=== PATIENT | male | born 1995 | race African-American/Black ===

== ENCOUNTER 2024-06-08 16:05 | Emergency (ER) | payer MEDICAID, SELFPAY ==
--- NOTE | ~2024-06-08 | XR_ITS ---
EXAMINATION: RADIOGRAPH LEFT ANKLE AND LEFT FOOT CLINICAL INDICATION: Status post injury while playing soccer. COMPARISON: No similar priors. TECHNIQUE: 2 views of the left ankle and 3 views of the left foot. FINDINGS: On the frontal view of the left ankle, there is suggestion of asymmetric widening of the medial clear space. No evidence of osseous fractures. Circumferential soft tissue swelling around the ankle. No significant abnormality in the left foot. XR/XR ankle LT min 3V IMPRESSION: 1. Asymmetric widening of the medial clear space of the left ankle, ligamentous injury cannot be excluded. 2. No acute fractures. Electronically signed by: Anayeli Bass MD 06/08/2024 05:27 PM EDT
--- NOTE | ~2024-06-08 | XR_ITS ---
EXAMINATION: RADIOGRAPH LEFT ANKLE AND LEFT FOOT CLINICAL INDICATION: Status post injury while playing soccer. COMPARISON: No similar priors. TECHNIQUE: 2 views of the left ankle and 3 views of the left foot. FINDINGS: On the frontal view of the left ankle, there is suggestion of asymmetric widening of the medial clear space. No evidence of osseous fractures. Circumferential soft tissue swelling around the ankle. No significant abnormality in the left foot. XR/XR foot LT min 3V IMPRESSION: 1. Asymmetric widening of the medial clear space of the left ankle, ligamentous injury cannot be excluded. 2. No acute fractures. Electronically signed by: Anayeli Bass MD 06/08/2024 05:27 PM EDT
[2024-06-08 16:11] VITALS: BP 137/82; PULSE 100; RESP 19; TEMP 36.6; O2SAT 100; BMI 26.4
--- NOTE | 2024-06-08 16:12 | ED.LOWEXIN ---
HPI - Extremity Injury (Lower) General Chief Complaint: Extremity Injury, Lower Stated Complaint: left ankle inj Time Seen by Provider: 06/08/24 17:16 Source: patient and RN notes reviewed Mode of arrival: ambulatory Limitations: no limitations History of Present Illness ED Provider: Georgina Newman PA-C HPI Narrative: This is a 28-year-old male, with no known medical problems, who presents emergency department with complaints of left ankle pain and swelling since yesterday. Patient states that while he was playing soccer yesterday he was kicked in the left foot and ankle by the soccer ball as well as a another player. He states that he had pain at that time however has been able to weightbear. He states that this morning he noticed increased pain and swelling and has been unable to put any weight on his left foot and ankle. He took Tylenol yesterday which provided him with some relief. Denies history of trauma to the ankle in the past. No history of IV drug use. No fevers or chills. No other complaints or concerns at this time. MD complaint: ankle injury and foot injury Onset (ago): day(s) Type of Injury: blunt Place: street/outdoors Severity: moderate Relieving factors: NSAID, cold therapy, immobilization and rest Exacerbating factors: weight bearing, movement and palpation Context: direct blow Associated symptoms: swelling and unable to bear weight Other symptoms: none Related Data Previous Rx's ?Medication ?Instructions ?Recorded acetaminophen 500 mg tablet 500 mg PO Q6H PRN pain #30 tabs 06/08/24 (Tylenol Extra Strength) ibuprofen 600 mg tablet 600 mg PO Q6H PRN pain #30 tabs 06/08/24 Allergies Allergy/AdvReac Type Severity Reaction Status Date / Time No Known Allergies Allergy Verified 06/08/24 16:12 Review of Systems Review of Systems: Yes all other systems are reviewed and are negative Constitutional: Constitutional: Reports as per HPI Physical Exam Vital Signs: Vital Signs: Last Vital Signs Temp 98.3 F 06/08/24 19:05 Pulse 89 06/08/24 19:05 Resp 18 06/08/24 19:05 BP 127/61 06/08/24 19:05 Pulse Ox 94 06/08/24 19:05 O2 Del Method Room Air 06/08/24 19:05 BMI result Body Mass Index 26.4 Const: General: cooperative, comfortable and no acute distress Orientation/consciousness: patient oriented x3 Limitations: no limitations HEENT: Head: Yes normal to inspection, Yes normocephalic and Yes atraumatic Ears: hearing grossly normal bilaterally General nose exam: Normal external nose present Face and sinus: Yes normal facial exam Mouth: Normal oral and palatal mucosa present, oropharynx normal and moist mucous membranes Throat: Yes posterior oropharynx normal Eyes: General: appearance normal, both eyes and all related structures Eyelids: Yes eyelids normal Conjunctivae: conjunctivae normal Sclerae: sclerae normal Pupils: Equal, round and reactive pupils present EOM: EOMs intact bilaterally Neck: Neck: Yes normal visual inspection, Yes full ROM and Yes no lymphadenopathy Lymphatic: no lymphadenopathy noted Chest: Chest palpation & inspection: normal inspection of the chest Resp: Effort & Inspection: normal respiratory effort and able to speak in complete sentences Auscultation: clear to auscultation bilaterally, no crackles, no rales, no rhonchi and no wheezes Cardio: Rate: regular rate Rhythm: regular rhythm Heart sounds: S1 normal heart sound present and S2 normal heart sound present GI: Inspection: Yes normal to inspection Skin: General skin exam: no rashes or lesions noted Trauma: no lacerations or abrasions Wounds: no wounds Neuro: General: patient oriented x3 and moves all extremities Cranial nerves: Yes Equal, round and reactive pupils present Extrem: Other: He has moderate edema noted to the left ankle with tenderness palpation along the medial and lateral malleolus. Strong DP pulse. No overlying erythema. Decreased ROM, especially with plantar and dorsiflexion due to pain and limited mobility. General: Yes normal to inspection Right upper extremity: normal to inspection Left upper extremity: normal to inspection Right lower extremity: normal to inspection Left lower extremity: normal to inspection Course Course Course Narrative: This is a Rapid Medical Examination (RME) performed by Korey Mendoza PA-C in triage. Full HPI, ROS, assessment and treatment plan per primary provider in the Main ED. 28 yo male presenting with left foot and ankle pain after getting kicked in the lower leg while playing soccer yesterday. unable to bear weight since. Plan: XR foot and ankle Medications Administered Discontinued Medications Generic Name Dose Route Start Last Admin Trade Name Freq PRN Reason Stop Dose Admin Ibuprofen 600 mg 06/08/24 17:34 06/08/24 17:46 Ibuprofen 600 Mg Tablet PO 06/08/24 17:35 600 mg ONCE ONE Administration Medical Decision Making Medical Decision Making [facility] Narrative: This is a 28-year-old male who presents emergency department with complaints of left foot and ankle pain status post soccer related injury yesterday. On arrival, vital signs within normal limits. He is speaking full sentences under no acute distress. He has moderate edema noted to the left ankle with tenderness palpation along the medial and lateral malleolus. Strong DP pulse. No overlying erythema. Differential diagnoses include fracture, strain, sprain, contusion. Less likely septic arthritis. He has no history of IVDA, and no skin breakdown. X-rays were performed revealing no acute bony abnormality however there is some asymmetric widening of the medial clear space of the left ankle, ligamentous injury can not be excluded. Discussed case with Neisha Tan PA-C who recommends splinting. Pt placed in stirrup splint, crutches, and given orthopedic referral.Given return precautions. Pt stable for d/c. Differential Diagnosis Differential Diagnoses: The differential diagnosis associated with the presentation includes sprain, strain, fracture, contusion, dislocation Admission/Observation Consideration of admission/observation: Escalation of care including admission/observation considered Radiology Impression Discussion of test interpretation with radiology: I have reviewed the radiologist's reading. Radiologist Impression: XR/XR ankle LT min 3V IMPRESSION: 1. Asymmetric widening of the medial clear space of the left ankle, ligamentous injury cannot be excluded. 2. No acute fractures. Electronically signed by: Anayeli Bass MD 06/08/2024 05:27 PM EDT Dictated By: Anayeli Bass Prescription Management I considered prescription management with: Pain Medication Procedures Orthopedic Splinting/Casting Injury #1: Side: left Upper Extremity Immobilizer: sugar tong splint Lower Extremity Injury Location: ankle Lower Extremity Immobilizer: stirrup splint Other Orthopedic Equipment: crutches Discharge Plan Discharge Clinical Impression: Ankle sprain and strain Patient Disposition: Home, Self-Care Instructions: Ankle Sprain (ED), R.I.C.E. Treatment (ED) Additional Instructions: You were seen in the emergency department after injuring her left foot and ankle. We placed you in a splint, please keep this on your ankle until you follow-up with Orthopedics. Do not get splint wet. Rest, elevate, and use crutches. Alternate between ibuprofen and Tylenol as needed for pain and symptoms. Please call the orthopedic office tomorrow for follow-up. If any new or worsening symptoms occur including but not limited to worsening severe pain in your left ankle and foot, please return for re-evaluation. Prescriptions: New ibuprofen 600 mg tablet 600 mg PO Q6H PRN (Reason: pain) Qty: 30 0RF acetaminophen [Tylenol Extra Strength] 500 mg tablet 500 mg PO Q6H PRN (Reason: pain) Qty: 30 0RF Referrals: [facility] [place] Orthopedic Surgeons [Provider Group] Stand Alone Forms: Work/School Release Interventions: ED Discharge Assessment Last Done: 06/08/24 19:05 Discharge Date/Time: 06/08/24 19:15 Print Language: Icelandic
[2024-06-08] MEDS: Ibuprofen 600 MG TABLET PO (17:46)
[2024-06-08 18:52] VITALS: BP 127/61; PULSE 89; RESP 18; TEMP 36.8; O2SAT 94
[2024-06-08 19:05] VITALS: BP 127/61; PULSE 89; RESP 18; TEMP 36.8; O2SAT 94
== END 2024-06-08 19:15 | disposition home or self-care (01) ==
PROVIDERS: Emergency Provider Emergency Medicine
DX: S93.402A Sprain of unspecified ligament of left ankle, initial encounter (principal); S96.912A Strain of unspecified muscle and tendon at ankle and foot level, left foot, initial encounter; W50.1XXA Accidental kick by another person, initial encounter; Y93.66 Activity, soccer; Y92.322 Soccer field as the place of occurrence of the external cause; Y99.9 Unspecified external cause status
CPT/HCPCS: 29515; 73610; 73630; 99283; 99284

== ENCOUNTER 2024-06-17 08:12 | Outpatient (REF) | payer MEDICAID, SELFPAY ==
--- NOTE | ~2024-06-17 | XR_ITS ---
EXAMINATION: XR ANKLE LEFT 3 VIEWS XR TIBIA AND FIBULA, LEFT CLINICAL INFORMATION: Pain in left ankle and joints of left foot M25.572. Splint off. COMPARISON: XR Left ankle 06/08/2024 TECHNIQUE: AP, lateral, and oblique views of the left ankle. AP and lateral views of the left tibia and fibula were obtained. FINDINGS: No fracture. Alignment is anatomic. There is mild widening of the medial ankle mortise which is unchanged compared to the prior exam. Persistent soft tissue edema is seen at the ankle. Proximal tibia and fibula are intact.. Soft tissues are normal. XR/XR tibia fibula LT 2V IMPRESSION: 1. No acute fractures. 2. Mild widening of the medial ankle mortise which is unchanged compared to the prior exam and could represent ligamentous injury. 3. Persistent soft tissue edema at the ankle. Electronically signed by: Elias Aleman MD 08/14/2024 09:[address] [facility] Workstation: [id number]
--- NOTE | ~2024-06-17 | XR_ITS ---
EXAMINATION: XR ANKLE RIGHT 3 VIEWS CLINICAL INFORMATION: Pain in right ankle and joints of right foot M25.571. COMPARISON: None available TECHNIQUE: AP, lateral, and mortise views of the right ankle. FINDINGS: No fracture. Alignment is anatomic. No erosions. Joint spaces are maintained. Soft tissues are normal. XR/XR ankle RT min 3V IMPRESSION: Normal right ankle. Electronically signed by: Elias Aleman MD 08/14/2024 10:39 AM [facility]
--- NOTE | ~2024-06-17 | XR_ITS ---
EXAMINATION: XR ANKLE LEFT 3 VIEWS XR TIBIA AND FIBULA, LEFT CLINICAL INFORMATION: Pain in left ankle and joints of left foot M25.572. Splint off. COMPARISON: XR Left ankle 06/08/2024 TECHNIQUE: AP, lateral, and oblique views of the left ankle. AP and lateral views of the left tibia and fibula were obtained. FINDINGS: No fracture. Alignment is anatomic. There is mild widening of the medial ankle mortise which is unchanged compared to the prior exam. Persistent soft tissue edema is seen at the ankle. Proximal tibia and fibula are intact.. Soft tissues are normal. XR/XR ankle LT min 3V IMPRESSION: 1. No acute fractures. 2. Mild widening of the medial ankle mortise which is unchanged compared to the prior exam and could represent ligamentous injury. 3. Persistent soft tissue edema at the ankle. Electronically signed by: Elias Aleman MD 08/14/2024 09:43 AM [facility] Workstation: [id number]
== END 2024-06-17 08:13 | disposition home or self-care (01) ==
LOC: HO.HOSX 08:12
PROVIDERS: Visit Provider Physician Assistant
DX: M25.572 Pain in left ankle and joints of left foot (principal); M25.571 Pain in right ankle and joints of right foot; M79.605 Pain in left leg; S93.439A Sprain of tibiofibular ligament of unspecified ankle, initial encounter; S93.402A Sprain of unspecified ligament of left ankle, initial encounter
CPT/HCPCS: 29515; 73590; 73610; 99212

== ENCOUNTER 2024-06-17 08:42 | Outpatient (AMB) | payer MEDICAID, SELFPAY ==
--- NOTE | 2024-06-17 08:45 | MHC.OFFVIS ---
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 Patient reports that he was playing soccer when another player attempted to kick the ball, instead kicking the patient in the left ankle. He presented to [facility] ER the following day due to pain and swelling. X-rays were taken and placed in a splint. Splint removed and XR updated to day in office. Currently patient reports that he is feeling better, but he continues to have pain and swelling. He continues to remain non weight bearing. He does take tylenol & Ibuprofen which does help with his pain. He is currently out of work due to his injury. 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 He reports he was playing soccer when another player attempted to kick the ball but instead kicked him in the left ankle. He was seen at ER the following day due to pain and swelling where x-rays were performed and he was placed in a splint. He currently states he has improvement however he continues to have pain and swelling in his ankle. He takes Tylenol and ibuprofen for his pain with benefits. He has been out of work since his injury. [facility] Social History (Updated 06/17/24 @ 09:00 by Rafaela Artis CMA) Current occupational status: employed Current occupation: [employer] Review of Systems Const All systems reviewed & are unremarkable except as noted in HPI and below Physical Exam Vital Signs: BMI result Body Mass Index 26.4 Const General: cooperative, healthy appearing, comfortable, no acute distress, well developed and alert Orientation/consciousness: patient oriented x3 HEENT Head: Yes normal to inspection, Yes normocephalic and Yes atraumatic Eyes General: appearance normal, both eyes and all related structures Resp Effort & Inspection: normal respiratory effort and able to speak in complete sentences Cardio Rate: regular rate Peripheral pulses: Peripheral pulses 2+ throughout GI Palpation (GI): Soft to palpation Skin Lesions: no lesions Rashes: no rashes Neuro General: patient oriented x3 Extrem Other: Left ankle: Normal to inspection with diffuse swelling over the medial malleolus with tenderness along the medial mal. No discomfort along the posterior aspect of the ankle, no deformity along the Achilles tendon, negative Alexandra?s. He does have pain along the syndesmosis , no pain along the proximal tib/fib. No laxity, NVI. Office Procedures Casting/Splints [id number] Leg splint application Procedure code (CPT) selection complete Results Reviewed Results Reviewed: X-rays of the bilateral ankle obtained in the office today show a normal right ankle, ankle mortis intact. Left ankle has widening of the medial clear space. No fracture or bony deformity noted. Assessment & Plan Assessment & Plan (1) Acute disruption of syndesmosis of ankle joint: Code(s): S93.439A - Sprain of tibiofibular ligament of unspecified ankle, initial encounter Category: Medical (2) Left ankle sprain: Code(s): S93.402A - Sprain of unspecified ligament of left ankle, initial encounter Category: Medical Plan Images reviewed with Dr. Figueroa. At this time the decision was made to order a STAT MRI of the left ankle to further evaluate the ligamentous structures and procedural planning. We will also book him for a closed vs open reduction and internal fixation for early next week. I discussed the extent of the injury to the patient and options available. Given the extent of widening of the ankle mortise and high risk of further displacement, it is recommended that we surgically fix this to help with stability and restoring anatomy. I explained to the patient the procedure in detail along with the risks, benefits and alternatives.? Risks including but not limited to infection, wound breakdown, stiffness, ongoing pain, nonunion or malunion, and possible complications with hardware. He does understand all this and would like to proceed with closed versus open reduction internal fixation of the left ankle with Dr. Figueroa. He will be booked accordingly. At this time the patient health insurance has elapsed. I did sign him for financial agreement form and directed him to financial planning and also contacted the health insurance to reinstate this. He will contact us today or as late as tomorrow to update the process and schedule him for an MRI and surgery. Orders: Orders XR ankle LT min 3V Today M25.572 - Pain in left ankle and joints of left foot XR ankle RT min 3V Today M25.571 - Pain in right ankle and joints of right foot XR tibia fibula LT 2V Today M79.605 - Pain in left leg MR ankle LT wo con Today S93.402A - Sprain of unspecified ligament of left ankle, initial encounter, S93.439A - Sprain of tibiofibular ligament of unspecified ankle, initial encounter Patient Instructions: Scribed for Neisha Tan PA-C, by Isael Tierney medical supply technician, on 06/17/2024 at 9:00 AM EST.? I, Neisha Tan PA-C, have personally reviewed and agree with the information entered by the scribe. Coding Level of Care Code New Pt Level 4 (86108) Diagnoses Acute disruption of syndesmosis of ankle joint S93.439A Left ankle sprain S93.402A CPT Codes Splint - CPT: 65037-Vuzul Leg splint application ([id number])
[2024-06-17 08:49] VITALS: BMI 26.4
== END 2024-06-17 10:05 | disposition home or self-care (01) ==
PROVIDERS: Visit Provider Physician Assistant
DX: S93.432A Sprain of tibiofibular ligament of left ankle, initial encounter (principal); S93.402A Sprain of unspecified ligament of left ankle, initial encounter
CPT/HCPCS: 29515; 99204

== ENCOUNTER 2024-06-24 11:47 | Day surgery (SDC) | payer MEDICAID, SELFPAY ==
--- NOTE | 2024-06-23 10:02 | HO.ANESPROP2 ---
Documented by User: Heidy Wood NP 06/23/24 10:02 HPI - Anesthesia Eval Consult details Narrative: 28yo M for Left Ankle Fracture ORIF closed vs open PMFSH Active Problems Active Problems: All Active Problems Left ankle sprain (Acute) Acute disruption of syndesmosis of ankle joint (Acute) Social History Social History Patient Tobacco Use Status: Never used Tobacco Use of substances other than those prescribed or required for medical reasons: No Are you DNR?: No Advance Directives: No Advance Directives Information Provided: Yes Current occupational status: employed Current occupation: [employer] Meds Allergies Allergy/AdvReac Type Severity Reaction Status Date / Time No Known Allergies Allergy Verified 06/17/24 08:45 Assessment and Plan Assessment Anesthesia Assessment: Chart Reviewed Documented by User: Layne Clemente MD 06/24/24 13:14 PMFSH Surgical History History of Problems with Anesthesia: No Social History Social History Patient Tobacco Use Status: Never used Tobacco Use of substances other than those prescribed or required for medical reasons: No Are you DNR?: No Advance Directives: No Advance Directives Information Provided: Yes Current occupational status: employed Current occupation: [employer] Meds Allergies Allergy/AdvReac Type Severity Reaction Status Date / Time No Known Allergies Allergy Verified 06/17/24 08:45 Exam Airway Mallampati Class: II TM Dist: >3cm Neck ROM: Full Loose/Missing/Broken Teeth: No Heart: RRR Lungs: CTA Assessment and Plan Assessment Anesthesia Assessment: Anesthesia Plan Discussed Final Anesthetic Review History of Problems with Anesthesia: No NPO: Yes ASA Class: I Final Preanesthetic Review: Meds/Allgs Chart Reviewed, Consent Obtained/Reviewed and Anes Risks/Benef Reviewed Patient Risk: Low Procedure Risk: Low Anesthetic Plan Anesthetic Plan: GA and Regional Block Disposition: Standard PACU
[2024-06-24] VITALS (7 sets, daily range): BP systolic 131–145; BP diastolic 59–88; PULSE 82–118; RESP 16–22; TEMP 36.3–37.3; O2SAT 97–100; BMI 26.6
--- NOTE | 2024-06-24 12:06 | MHC.SHP ---
Pre-Procedural Eval Section A - 24 Hr Update-Section A only Date of Service: 06/24/24 The patient is an INPATIENT: No Changes since office visit: No Cold of Flu in the past 2 weeks, No New Medical Problems, No Changes in Medication and No Patient answered all questions The patient has been examined within 24 hours of the surgical procedure. The History & Physical has been completed within 30 days and I have reviewed it.: Yes Section B - Complete if H&P > 30 days Chief Complaint: Sprain of tibiofibular ligament of left ankle Allergies: Allergies Allergy/AdvReac Type Severity Reaction Status Date / Time No Known Allergies Allergy Verified 06/17/24 08:45 Plan I have reviewed the history and physical and performed a pertinent physical examination on my patient. No changes have occurred unless specified. Time Spent With Patient Time: Total time managing care of this patient today ____ minutes.
[2024-06-24] MEDS: Lactated Ringers 1,000 ML 100 ML IVCONT (13:13)
--- NOTE | 2024-06-24 14:24 | PM.OP ---
Brief Operative Note Date of Service: 06/24/24 Pre-op diagnosis: Left ankle syndesmotic injury Post-op diagnosis: same Procedure: ORIF left syndesmosis Implants: [employer] Syndesmosis cinch x 2 Surgeon: Dakota Figueroa MD Anesthesia: GLMA and regional Was an Pump Service Supervisor used for this Procedure?: Yes Pump Service Supervisor: Aliza Kendall Estimated blood loss (mL): 25 IV fluids (mL): 750 Pathology: none sent Condition: stable Disposition: PACU
--- NOTE | 2024-07-03 16:17 | P.OP_ITS ---
Operative Note Operative Note Date of Service: 06/24/24 Narrative: Date of Service: 06/24/24 Pre-op diagnosis: Left ankle syndesmotic injury Post-op diagnosis: same Procedure: ORIF left syndesmosis Implants: [employer] Syndesmosis cinch x 2 Surgeon: Dakota Figueroa MD Anesthesia: GLMA and regional Was an Fabric Worker Fitter used for this Procedure?: Yes Fabric Worker Fitter: Aliza Kendall Estimated blood loss (mL): 25 IV fluids (mL): 750 Pathology: none sent Condition: stable Disposition: PACU Patient was brought to the operating room and placed supine on the surgical table. He was prepped and draped in standard sterile fashion and a time out was called to identify proper site, proper procedure and IV antibiotics per weight were administered. I began by performing radiographs of bilateral ankles. AP radiographs were performed and a external rotation stress test and the left ankle mortise opened significantly especially compared to the right and the decision was made to place a syndesmosis cinch across the syndesmosis. A senthil incision was made just proximal to the physeal scar and dissected down to the lateral aspect of the fibula. This process was repeated medially and a clamp was used to compress the syndesmosis. I then placed 2 Sturgeon meniscal cinches from lateral to medial and slightly posterior to anterior across the syndesmosis. These were buried laterally in the button was placed and cinched down to the medial button which was flipped on the medial tibia. These were brought taut and the clamp was released. I then re trialed with an external rotation test and was satisfied with the stability and symmetry of the syndesmosis. I then irrigated and closed with absorbable suture and tonio. Patient was placed in sterile dressing and extubated and brought to recovery room in stable condition. There were no known complications.
== END 2024-06-24 15:48 | disposition home or self-care (01) ==
LOC: HO.SSS 11:47
PROVIDERS: Visit Provider Orthopaedic Surgery
PROC: (CPT 27829; principal; 2024-06-24 14:30)
DX: S93.432A Sprain of tibiofibular ligament of left ankle, initial encounter (principal); W50.1XXA Accidental kick by another person, initial encounter; Y93.66 Activity, soccer; Y92.39 Other specified sports and athletic area as the place of occurrence of the external cause; Y99.9 Unspecified external cause status; M25.572 Pain in left ankle and joints of left foot
CPT/HCPCS: 27829; C1713; J0131; J0665; J0690; J1100; J1171; J2003; J2250; J2405; J2704; J3010

== ENCOUNTER → 2024-06-24 11:47 | Outpatient (BNV) | payer MEDICAID, SELFPAY | PROVIDERS: Visit Provider Orthopaedic Surgery | DX: S93.492A Sprain of other ligament of left ankle, initial encounter (principal) | CPT/HCPCS: 27829 ==

== ENCOUNTER 2024-07-02 11:12 | Outpatient (AMB) | payer MEDICAID, SELFPAY ==
--- NOTE | 2024-07-02 11:35 | MHC.OFFVIS ---
Intake Visit Reasons: PO left ankle ORIF 06/24/24 NE Intake Note: Audra is a 28 year old male who presents today for a for a post op appointment s/p left ankle ORIF 06/24/24 NE. Patient reports no pain at the moment. He mentions at night his pain is worse. Denies numbness and tingling. Allergies No Known Allergies Allergy (Verified 06/17/24 08:45) HPI HPI PO left ankle ORIF 06/24/24 NE: Details: 28-year-old male who presents in the office today 8 days status post ORIF left syndesmosis, which was performed on 06/24/[address] Figueroa. While in the office today, the patient reports left ankle pain is worse at night. However, he denies any pain currently. He also denies any numbness or tingling sensation. [facility] Social History Patient Tobacco Use Status: Never used Tobacco Current occupational status: employed Current occupation: [employer] Review of Systems Const All systems reviewed & are unremarkable except as noted in HPI and below Physical Exam Const General: cooperative, healthy appearing and no acute distress Resp Effort & Inspection: normal respiratory effort and able to speak in complete sentences Cardio Rate: regular rate Peripheral pulses: Peripheral pulses 2+ throughout GI Palpation (GI): Soft to palpation Skin Lesions: no lesions Rashes: no rashes Extrem Other: Left ankle: Incision sites are clean, dry, and intact. Danyel intact. No surrounding erythema or drainage. No signs of infection. Able to perform dorsiflexion and plantar flexion. Sensation intact. Pedal pulse intact. Office Procedures Casting/Splints [id number] Leg Cast Application Procedure code (CPT) selection complete Assessment & Plan Assessment & Plan (1) Status post open reduction and internal fixation (ORIF) of syndesmosis: Comment: status post ORIF left syndesmosis. Code(s): Z98.890 - Other specified postprocedural states; Z87.81 - Personal history of (healed) traumatic fracture Category: Surgical Plan Mr. Valencia is a 28-year-old male who presents in the office today 8 days status post ORIF left syndesmosis which was performed on 06/24/[address] Figueroa. While in the office today, the patient reports left ankle pain is worse at night. However, he denies any pain currently. He also denies any numbness or tingling sensation. [place] were removed and steri-strips were applied. The case was reviewed by Dr. Figueroa, who was available to speak with me but unable to see the patient, and a collaborative treatment plan was made. He was placed into a short leg cast, custom made. He will remain non-weight bearing. He will follow-up in 3 weeks with anticipation of transitioning to a tall walking boot, weight bearing as tolerated with X-rays. Follow-up will be in 3 weeks with x-rays, or sooner if needed. Patient Instructions: Scribed by Patience Pickett medical sales specialist, for Aliza Kendall PA-C on 07/02/24 at 11:56 am EST. Coding Level of Care Code Global (94497) Diagnoses Status post open reduction and internal fixation (ORIF) of syndesmosis Z98.890; Z87.81 CPT Codes Casting - CPT: 39592-Ycxzg Leg Cast Application ([id number])
== END 2024-07-02 12:18 | disposition home or self-care (01) ==
PROVIDERS: Visit Provider Physician Assistant
DX: S93.492D Sprain of other ligament of left ankle, subsequent encounter (principal); Z87.81 Personal history of (healed) traumatic fracture
CPT/HCPCS: 29405; 99024

== ENCOUNTER → 2024-07-02 11:12 | Outpatient (BNVA) | payer MEDICAID, SELFPAY | PROVIDERS: Visit Provider Physician Assistant | DX: Z47.89 Encounter for other orthopedic aftercare (principal); Z98.890 Other specified postprocedural states; Z87.81 Personal history of (healed) traumatic fracture | CPT/HCPCS: 29405; 99212 ==

== ENCOUNTER 2024-07-23 10:52 | Outpatient (AMB) | payer MEDICAID, SELFPAY ==
--- NOTE | 2024-07-23 11:18 | MHC.OFFVIS ---
Intake Visit Reasons: PO left ankle ORIF 06/24/24 NE-w/xrays cast off Intake Note: Audra is a 28 year old male who presents today for a for a post op appointment s/p left ankle ORIF 06/24/24 NE. Patient reports he is doing well. No pain or discomfort at the moment. Allergies No Known Allergies Allergy (Verified 07/23/24 11:22) HPI HPI PO left ankle ORIF 06/24/24 NE-w/xrays cast off: Details: 28-year-old male who presents in the office today 4 weeks status post ORIF left syndesmosis, which was performed on 06/24/[address] Figueroa. I last saw the patient in the office on 07/02/24 when he was placed into a short leg cast and recommended to remain non-weight bearing. While in the office today, the patient currently denies experiencing any pain or discomfort in the left ankle. He states that he is doing well. [facility] Social History Patient Tobacco Use Status: Never used Tobacco Current occupational status: employed Current occupation: [employer] Review of Systems Const All systems reviewed & are unremarkable except as noted in HPI and below Physical Exam Const General: cooperative, healthy appearing and no acute distress Resp Effort & Inspection: normal respiratory effort and able to speak in complete sentences Cardio Rate: regular rate Peripheral pulses: Peripheral pulses 2+ throughout GI Palpation (GI): Soft to palpation Skin Lesions: no lesions Rashes: no rashes Extrem Other: Left ankle: Incision sites are clean, dry and intact. No surrounding erythema or drainage. No signs of infection. Able to perform dorsiflexion, plantar flexion, pronation, and supination with slight limitation due to stiffness. Sensation is intact. Pedal pulse is intact. Assessment & Plan Assessment & Plan (1) Status post open reduction and internal fixation (ORIF) of syndesmosis: Comment: status post ORIF left syndesmosis. Code(s): Z98.890 - Other specified postprocedural states; Z87.81 - Personal history of (healed) traumatic fracture Category: Surgical Plan Mr. Valencia is a 28-year-old male who presents in the office today 4 weeks status post ORIF left syndesmosis, which was performed on 06/24/[address] Figueroa. I last saw the patient in the office on 07/02/24 when he was placed into a short leg cast and recommended to remain non-weight bearing. While in the office today, the patient currently denies experiencing any pain or discomfort in the left ankle. He states that he is doing well. The patient is transitioned to a tall walking boot, off the shelf. He may begin to weight bear as tolerated. I have placed an order for physical therapy today. Follow-up will be in 6 weeks, or sooner if needed. X-rays of the left ankle, which were obtained while in the office today and were reviewed by me, Aliza Kendall PA-C, revealed: Intact orthopedic hardware with routine healing. Orders: Orders XR ankle LT min 3V 07/23/24 M25.579 - Pain in unspecified ankle and joints of unspecified foot Patient Instructions: Scribed by Patience Pickett, front office medical assistant, for Aliza Kendall PA-C on 07/23/24 at 11:31 am EST. Coding Level of Care Code Global (47807) Diagnoses Status post open reduction and internal fixation (ORIF) of syndesmosis Z98.890; Z87.81
== END 2024-07-23 11:45 | disposition home or self-care (01) ==
PROVIDERS: Visit Provider Physician Assistant
DX: Z98.890 Other specified postprocedural states (principal); Z87.81 Personal history of (healed) traumatic fracture
CPT/HCPCS: 99024

== ENCOUNTER 2024-07-23 15:06 | Outpatient (REF) | payer MEDICAID, SELFPAY ==
--- NOTE | ~2024-07-23 | XR_ITS ---
EXAMINATION: XR ANKLE, LEFT CLINICAL INFORMATION: M25.579 - Pain in unspecified ankle and joints of unspecified foot COMPARISON: X-rays of left ankle 06/08/2024. TECHNIQUE: AP, lateral, and mortise views of the left ankle. FINDINGS: Postoperative changes with hardware overlying the medial cortex of the distal tibia and lateral cortex of the distal fibula with tubular lucencies extending transversely across the syndesmosis (suture button fixation). Slightly decreased medial clear space compared to prior. XR/XR ankle LT min 3V IMPRESSION: Postoperative changes of the left ankle. Electronically signed by: Elias Michele MD 07/29/2024 11:49 AM MAYA
== END 2024-07-23 15:07 | disposition home or self-care (01) ==
LOC: HO.HOSX 15:06
PROVIDERS: Visit Provider Physician Assistant
DX: M25.572 Pain in left ankle and joints of left foot (principal); Z98.890 Other specified postprocedural states; Z87.81 Personal history of (healed) traumatic fracture
CPT/HCPCS: 73610; 99212

== ENCOUNTER 2024-09-08 09:39 | Outpatient (REF) | payer OTHER, SELFPAY ==
--- NOTE | ~2024-09-08 | XR_ITS ---
CLINICAL HISTORY: M25.579 - Pain in unspecified ankle and joints of unspecified foot 3 view left ankle Comparison: None Findings: There are bone anchors in the lateral distal fibula and the medial distal tibia. No significant arthritic change or erosions. Small joint effusion present. No radiopaque foreign body. Ankle mortise is in anatomic alignment. IMPRESSION: Small ankle joint effusion. This document has been electronically signed by: Kermit Dahl MD on 09/11/2024 18:20:33
== END 2024-09-08 09:40 | disposition home or self-care (01) ==
LOC: HO.HOSX 09:39
PROVIDERS: Visit Provider Physician Assistant
DX: M25.572 Pain in left ankle and joints of left foot (principal); S93.432A Sprain of tibiofibular ligament of left ankle, initial encounter; Z87.81 Personal history of (healed) traumatic fracture; Z98.890 Other specified postprocedural states
CPT/HCPCS: 73610; 99212

== ENCOUNTER 2024-09-08 12:18 | Outpatient (AMB) | payer OTHER, SELFPAY ==
--- NOTE | 2024-09-08 12:34 | A.OFFVIS_ITS ---
Vital Signs 09/08/24 12:35 Height 6 ft 1 in Weight 240 lb BMI 31.7 Intake Visit Reasons: OV left ankle ORIF 06/24/24 NE Intake Note: Audra is a 28 year old male who presents today for a for a post op appointment s/p left ankle ORIF 06/24/24 NE. Patient reports that he is doing well with no current concerns. He has dicontinued use of the boot. XR updated today in office . Allergies No Known Allergies Allergy (Verified 09/08/24 12:34) HPI HPI OV left ankle ORIF 06/24/24 NE: Details: Mr. Valencia is a 28-year-old male who presents the office today for routine follow-up status post left ankle syndesmosis ORIF on 06/24/2024. Patient repor ts that he has been weaned out of the boot for roughly 5-6 weeks. He presents the office today in slides. He reports that he has no pain or difficulty with ambulation. He was unable to attend any physical therapy due to not having a PCP for insurance referral. However, the patient reports that he has no difficulty with range of motion and feels as though he status baseline. [facility] Social History Patient Tobacco Use Status: Never used Tobacco Current occupational status: employed Current occupation: [employer] Review of Systems Const All systems reviewed & are unremarkable except as noted in HPI and below Physical Exam Vital Signs: BMI result Body Mass Index 31.7 Const General: cooperative, healthy appearing and no acute distress Resp Effort & Inspection: normal respiratory effort and able to speak in complete sentences Cardio Peripheral pulses: Peripheral pulses 2+ throughout Skin Lesions: no lesions Rashes: no rashes Extrem Other: Left ankle: Incision sites are clean, dry and intact. No surrounding erythema or drainage. No signs of infection. Fully healed. Able to perform dorsiflexion, plantar flexion, pronation, and supination without limitation. Sensation is intact. Pedal pulse is intact. Assessment & Plan Assessment & Plan (1) Acute disruption of syndesmosis of ankle joint: Code(s): S93.439A - Sprain of tibiofibular ligament of unspecified ankle, initial encounter Category: Medical (2) Status post open reduction and internal fixation (ORIF) of syndesmosis: Comment: status post ORIF left syndesmosis. Code(s): Z98.890 - Other specified postprocedural states; Z87.81 - Personal history of (healed) traumatic fracture Category: Surgical Plan Mr. Valencia is a 28-year-old male who presents the office today for routine follow-up status post left ankle syndesmosis ORIF on 06/24/2024. Patient reports that he has been weaned out of the boot for roughly 5-6 weeks. He presents the office today in slides. He reports that he has no pain or difficulty with ambulation. He was unable to attend any physical therapy due to not having a PCP for insurance referral. However, the patient reports that he has no difficulty with range of motion and feels as though he status baseline. Patient is exhibiting no pain or discomfort. He has full range of motion on exam while in the office today. He was encouraged to return back to normal activities as tolerated using pain as his guide. He can follow up p.r.n., sooner if needed. Orders: Orders XR ankle LT min 3V Today M25.579 - Pain in unspecified ankle and joints of unspecified foot Coding Level of Care Code Global (54183) Diagnoses Acute disruption of syndesmosis of ankle joint S93.439A Status post open reduction and internal fixation (ORIF) of syndesmosis Z98.890; Z87.81
[2024-09-08 12:35] VITALS: BMI 31.7
== END 2024-09-08 12:39 | disposition home or self-care (01) ==
PROVIDERS: Visit Provider Physician Assistant
DX: S93.439A Sprain of tibiofibular ligament of unspecified ankle, initial encounter (principal); Z98.890 Other specified postprocedural states; Z87.81 Personal history of (healed) traumatic fracture
CPT/HCPCS: 99024

== ENCOUNTER → 2024-09-08 12:22 | Outpatient (BNV) | payer OTHER, SELFPAY | PROVIDERS: Visit Provider Radiology Diagnostic Radiology | DX: M25.472 Effusion, left ankle (principal) | CPT/HCPCS: 73610 ==